=== PATIENT | female | born 1945 | race Caucasian/White ===

== ENCOUNTER → 2017-04-04 | Outpatient (CLI) | payer MEDICARE ==
[~2017-04-04] MED LIST: ALPRAZOLAM PO; ASPIRIN PO; BUSPIRONE HCL7.5 MG PO; CERTAGEN PO; CITRUCEL CLEAR539 GM; DOXEPIN PO; FISH OIL + D31 EACH PO; FISH OIL 1,0001 CAP PO; FLOMAX0.4 MG PO; FOSAMAX PO; LIPITOR20 MG; LIPITOR20 MG PO; LO-DOSE ASPIRIN81 M1 PO; OYSTER CALCIUM500 MG PO; TYLOX 5/500 CAP1 CAP PO; VIT D PO; VIT E; VIT E PO; VITAMIN D400 UNI2 PO; ZOCOR PO
== END | disposition home or self-care (01) ==
LOC: CSSDAY 10:38
DX: M81.0 Age-related osteoporosis without current pathological fracture (principal)
CPT/HCPCS: 96372; J0897